=== PATIENT | female | born 1955 | race Caucasian/White ===

== ENCOUNTER 2020-06-04 11:12 | Inpatient (IN) | payer OTHER ==
[~2020-06-04] VITALS: Ht 149.9 cm; Wt 110.0 kg
[2020-06-04 12:25] LABS: HEMOGLOBIN 14.1 gm/dl (12.3-15.3); RED BLOOD COUNT 4.68 M/UL (4.00-5.10); WHITE BLOOD COUNT 8.6 K/UL (4.5-11.0)
[2020-06-04 13:21] LABS: BUN/CREATININE RATIO 22 (0-10)
[2020-06-05 02:58] LABS: HEMOGLOBIN 13.7 gm/dl (12.3-15.3); RED BLOOD COUNT 4.6 M/UL (4.00-5.10); WHITE BLOOD COUNT 8.6 K/UL (4.5-11.0)
[2020-06-05] MEDS ORDERED: ALDACTONE 25MG25 MG PO (11:08)
[2020-06-05] MEDS ORDERED: IMDUR ER TAB 6060 MG PO (11:09)
[2020-06-05] MEDS ORDERED: LOSARTAN POTAS100 MG PO (11:20)
[2020-06-05] MEDS ORDERED: HYDRALAZINE HCL50 MG PO (11:21)
[2020-06-05] MEDS ORDERED: AMLODIPINE BESY10 MG PO (12:08)
[2020-06-05] MEDS ORDERED: FUROSEMIDE40 MG PO (12:09)
[2020-06-05] MEDS ORDERED: IBU800 MG PO (12:10)
[2020-06-05] MEDS ORDERED: ATORVASTATIN CA40 MG PO (12:11)
[2020-06-05] MEDS ORDERED: CYCLOBENZAPRINE5 MG PO (12:11)
[2020-06-05] MEDS ORDERED: METOPROLOL TAR100 MG PO (12:12)
[2020-06-05] MEDS ORDERED: LEVOTHYROXINE75 MCG PO (12:13)
[2020-06-05] MEDS ORDERED: ASPIRIN 325MG325 MG PO (12:14)
[2020-06-05] MEDS ORDERED: HYDROCODON-ACE1 EAC6 PO (16:58)
[2020-06-06] MEDS ORDERED: NITROSTAT0.4 MG SL (12:15)
[2020-06-06] MEDS ORDERED: PROTONIX 40 MG40 M1 PO (12:17)
[2020-06-06] MEDS ORDERED: BRILINTA 90 MG90 MG GT (12:18)
[2020-06-06] MEDS ORDERED: COREG3.125 MG PO (12:19)
== END 2020-06-06 15:20 | disposition home health service (06) | DRG 247 ==
LOC: ER1 11:12 → PROG CARE 21:17
PROVIDERS: Emergency Medicine; ADMIT Internal Medicine Interventional Cardiology
PROC: 027035Z Dilation of Coronary Artery, One Artery with Two Drug-eluting Intraluminal Devices, Percutaneous Approach (ICD-10-PCS; principal; 2020-06-04)
PROC: 4A023N7 Measurement of Cardiac Sampling and Pressure, Left Heart, Percutaneous Approach (ICD-10-PCS; 2020-06-04)
PROC: B2111ZZ Fluoroscopy of Multiple Coronary Arteries using Low Osmolar Contrast (ICD-10-PCS; 2020-06-04)
PROC: 4A0335C Measurement of Arterial Flow, Coronary, Percutaneous Approach (ICD-10-PCS; 2020-06-04)
PROC: B24BZZZ Ultrasonography of Heart with Aorta (ICD-10-PCS; 2020-06-04)
DX: I21.09 ST elevation (STEMI) myocardial infarction involving other coronary artery of anterior wall (principal); Z68.42 Body mass index [BMI] 45.0-49.9, adult; T82.858A Stenosis of other vascular prosthetic devices, implants and grafts, initial encounter; T82.855A Stenosis of coronary artery stent, initial encounter; Z20.822 Contact with and (suspected) exposure to COVID-19; I10 Essential (primary) hypertension; E78.5 Hyperlipidemia, unspecified; F17.210 Nicotine dependence, cigarettes, uncomplicated; E66.9 Obesity, unspecified; I25.10 Atherosclerotic heart disease of native coronary artery without angina pectoris; Z98.61 Coronary angioplasty status; Z95.1 Presence of aortocoronary bypass graft; Z79.82 Long term (current) use of aspirin; Z79.890 Hormone replacement therapy; Z79.899 Other long term (current) drug therapy; Z90.49 Acquired absence of other specified parts of digestive tract; Z90.710 Acquired absence of both cervix and uterus; Z82.49 Family history of ischemic heart disease and other diseases of the circulatory system
CPT/HCPCS: ECHO; 36415; 71045; 80048; 80053; 80061; 82550; 82553; 82962; 83874; 84484; 85025; 85347; 85610; 85730; 87635; 93005; 93306; 96374; 96375; 96376; 97110-GP-CQ; 97162; 99152; 99153; 99285; C1725; C1769; C1874; C1887; C9600; J0461; J1170; J1644; J2250; J2270; J2405; J3246; J7040; Q9965; Q9967

== ENCOUNTER 2020-09-28 11:44 | Inpatient (IN) | payer OTHER ==
[~2020-09-28] VITALS: Ht 149.9 cm; Wt 101.0 kg
[~2020-09-28 11:44] MED LIST: ALDACTONE 25MG25 MG PO; AMLODIPINE BESY10 MG PO; ASPIRIN 325MG325 MG PO; ATORVASTATIN CA40 MG PO; BRILINTA 90 MG90 MG GT; COREG3.125 MG PO; CYCLOBENZAPRINE5 MG PO; FUROSEMIDE40 MG PO; HYDRALAZINE HCL50 MG PO; HYDROCODON-ACE1 EAC6 PO; IBU800 MG PO; IMDUR ER TAB 6060 MG PO; LEVOTHYROXINE75 MCG PO; LOSARTAN POTAS100 MG PO; METOPROLOL TAR100 MG PO; NITROSTAT0.4 MG SL; PROTONIX 40 MG40 M1 PO
[2020-09-28 12:05] LABS: HEMOGLOBIN 11.7 gm/dl (12.3-15.3); RED BLOOD COUNT 3.78 M/UL (4.00-5.10); WHITE BLOOD COUNT 8.1 K/UL (4.5-11.0)
[2020-09-28 12:45] LABS: BUN/CREATININE RATIO 22 (0-10)
[2020-09-28] MEDS ORDERED: RANOLAZINE ER1000 MG PO (17:30)
[2020-09-29 01:17] LABS: HEMOGLOBIN 10.2 gm/dl (12.3-15.3); WHITE BLOOD COUNT 7.4 K/UL (4.5-11.0)
[2020-09-29 01:21] LABS: RED BLOOD COUNT 3.38 M/UL (4.00-5.10)
[2020-09-29 04:06] LABS: BUN/CREATININE RATIO 19 (0-10)
[2020-09-30 06:06] LABS: HEMOGLOBIN 9.9 gm/dl (12.3-15.3); RED BLOOD COUNT 3.24 M/UL (4.00-5.10); WHITE BLOOD COUNT 6.6 K/UL (4.5-11.0)
[2020-09-30] MEDS ORDERED: ASPIRIN EC81 MG PO (10:09)
[2020-09-30] MEDS ORDERED: ISOSORBIDE MONO30 MG PO (10:09)
[2020-09-30] MEDS ORDERED: LOPRESSOR 50 MG50 MG PO (10:09)
--- NOTE | 2020-09-30 11:32 | NUR ---
INSTRUCTED PATIENT AND SISTER ON MED CHANGES, SIDE EFFECTS OF MEDS WITH NEW INFORMATION ON CHEST PAIN. VERBLIZED UNDERSTANDING. REX BUENO R.N.
== END 2020-09-30 12:43 | disposition home or self-care (01) | DRG 683 ==
LOC: ER1 11:44 → M/S 15:13 → CDU 15:13 → M/S 17:05
PROVIDERS: Emergency Medicine; Physician Assistant Medical; ADMIT Internal Medicine
DX: N17.0 Acute kidney failure with tubular necrosis (principal); Z68.42 Body mass index [BMI] 45.0-49.9, adult; R00.1 Bradycardia, unspecified; I95.9 Hypotension, unspecified; Z20.822 Contact with and (suspected) exposure to COVID-19; I25.10 Atherosclerotic heart disease of native coronary artery without angina pectoris; M25.512 Pain in left shoulder; I10 Essential (primary) hypertension; E78.5 Hyperlipidemia, unspecified; E78.00 Pure hypercholesterolemia, unspecified; D64.9 Anemia, unspecified; E03.9 Hypothyroidism, unspecified; E66.9 Obesity, unspecified; F17.210 Nicotine dependence, cigarettes, uncomplicated; Z95.1 Presence of aortocoronary bypass graft; Z95.5 Presence of coronary angioplasty implant and graft; Z90.49 Acquired absence of other specified parts of digestive tract; Z90.710 Acquired absence of both cervix and uterus; Z88.8 Allergy status to other drugs, medicaments and biological substances; Z91.040 Latex allergy status; Z86.73 Personal history of transient ischemic attack (TIA), and cerebral infarction without residual deficits; Z82.49 Family history of ischemic heart disease and other diseases of the circulatory system; I25.2 Old myocardial infarction
CPT/HCPCS: 36415; 71046; 80048; 80053; 82436; 82550; 82553; 82570; 83540; 83550; 83735; 83874; 84133; 84156; 84300; 84484; 85025; 85027; 93005; 96374; 96375; 99285; J2270; J2405; J7030; U0002

== ENCOUNTER 2020-10-15 09:07 | Observation (INO) | payer OTHER ==
[~2020-10-15] VITALS: Ht 149.9 cm; Wt 99.8 kg
[~2020-10-15 09:07] MED LIST changes: +ASPIRIN EC81 MG PO; +ISOSORBIDE MONO30 MG PO; +LOPRESSOR 50 MG50 MG PO; +RANOLAZINE ER1000 MG PO
[2020-10-15 10:49] LABS: HEMOGLOBIN 10.1 gm/dl (12.3-15.3); RED BLOOD COUNT 3.28 M/UL (4.00-5.10)
[2020-10-16 04:03] LABS: HEMOGLOBIN 9.2 gm/dl (12.3-15.3); RED BLOOD COUNT 3.02 M/UL (4.00-5.10); WHITE BLOOD COUNT 7.1 K/UL (4.5-11.0)
[2020-10-16 04:25] LABS: BUN/CREATININE RATIO 20 (0-10)
[2020-10-16] MEDS ORDERED: BUMETANIDE0.5 MG PO (10:12)
--- NOTE | 2020-10-16 13:28 | NUR ---
1130 O2 Sat 97% on room air.
== END 2020-10-16 16:21 | disposition home or self-care (01) ==
LOC: ER1 09:07 → CDU 14:59 → MED SURG 4 20:46
PROVIDERS: Emergency Medicine; Physician Assistant Medical; ADMIT Family Medicine
DX: J96.01 Acute respiratory failure with hypoxia (principal); J96.02 Acute respiratory failure with hypercapnia; I11.0 Hypertensive heart disease with heart failure; I50.31 Acute diastolic (congestive) heart failure; J44.1 Chronic obstructive pulmonary disease with (acute) exacerbation; I25.10 Atherosclerotic heart disease of native coronary artery without angina pectoris; K55.1 Chronic vascular disorders of intestine; I70.1 Atherosclerosis of renal artery; E78.5 Hyperlipidemia, unspecified; E03.9 Hypothyroidism, unspecified; F17.210 Nicotine dependence, cigarettes, uncomplicated; E66.9 Obesity, unspecified; Z68.41 Body mass index [BMI] 40.0-44.9, adult; Z20.822 Contact with and (suspected) exposure to COVID-19; Z95.1 Presence of aortocoronary bypass graft; Z88.8 Allergy status to other drugs, medicaments and biological substances; Z91.040 Latex allergy status; Z79.82 Long term (current) use of aspirin; Z79.899 Other long term (current) drug therapy; Z95.5 Presence of coronary angioplasty implant and graft
CPT/HCPCS: 0240U; 36415; 36600; 71045; 80048; 80053; 82550; 82553; 82803; 83605; 83690; 83735; 84484; 85025; 85027; 85379; 85610; 85730; 87040; 93005; 94640; 94660; 94664; 94760; 96374; 96375; 96376; 99285; G0378; J0696; J1940; J2930; J3475; J7070; Q9967

== ENCOUNTER → 2020-11-26 | Outpatient (CLI) | payer OTHER ==
[~2020-11-26] MED LIST changes: +BUMETANIDE0.5 MG PO
== END ==
LOC: EXRD 07:44
DX: I70.1 Atherosclerosis of renal artery (principal)
CPT/HCPCS: 93975

== ENCOUNTER → 2022-01-29 | Outpatient (CLI) | payer OTHER | LOC: EXRD 14:08 | DX: R05.3 Chronic cough (principal) | CPT/HCPCS: 71046 ==

== ENCOUNTER → 2022-01-30 | Outpatient (CLI) | payer MEDICARE ==
[2022-01-30 09:48] LABS: RED BLOOD COUNT 4.56 M/UL (4.00-5.10)
[2022-01-30 10:24] LABS: BUN/CREATININE RATIO 21 (0-10)
== END ==
LOC: LAB 09:07
PROVIDERS: Nurse Practitioner Family
DX: I10 Essential (primary) hypertension (principal); E53.8 Deficiency of other specified B group vitamins; R79.89 Other specified abnormal findings of blood chemistry; M79.89 Other specified soft tissue disorders
CPT/HCPCS: 36415; 80053; 80061; 82607; 83880; 84439; 84443; 85025